=== PATIENT | male | born 1965 | race Two or more races ===

== ENCOUNTER 2020-04-06 19:04 | Emergency (ER) | payer MEDICAID ==
[~2020-04-06] VITALS: Ht 177.8 cm; Wt 70.0 kg
[2020-04-06 19:07] VITALS: BP 128/76
[2020-04-06 21:14] LABS: BASOPHILS % 0.5 % (0.0-2.0); EOSINOPHILS % 0.3 % (0.0-5.0); HEMATOCRIT. 41.8 % (42.0-52.0); HEMOGLOBIN. 14.1 g/dL (14.0-18.0); LYMPHOCYTES % 46.4 % (20.0-50.0); MEAN CORPUSCULAR HEMOGLOBIN 32.9 pg (28.0-32.0); MEAN CORPUSCULAR VOLUME 97.5 fL (80.0-94.0); MEAN PLATELET VOLUME 8.1 fl (7.4-10.4); MONOCYTES % 7.2 % (2.0-8.0); NEUTROPHILS % 45.6 % (40.0-76.0); PLATELET 110 x1000/uL (130-400); RED BLOOD CELL COUNT 4.29 mill/uL (4.7-6.1); RED CELL DISTRIBUTION WIDTH 16.3 % (11.6-14.6)
[2020-04-06 21:17] LABS: CHLORIDE 111 mEq/L (98-107)
== END 2020-04-06 21:38 | disposition home or self-care (01) ==
LOC: ER 19:04
DX: M25.812 Other specified joint disorders, left shoulder (principal); I10 Essential (primary) hypertension
CPT/HCPCS: 36415; 71045; 80048; 85025; 99284

== ENCOUNTER 2021-07-09 03:17 | Inpatient (IN) | payer MEDICAID ==
[~2021-07-09] VITALS: Ht 165.1 cm; Wt 85.3 kg
[2021-07-09 04:55] LABS: BASOPHILS % 0.9 % (0.0-2.0); EOSINOPHILS % 0.6 % (0.0-5.0); HEMATOCRIT. 36.6 % (42.0-52.0); LYMPHOCYTES % 29.7 % (20.0-50.0); MEAN CORPUSCULAR HEMOGLOBIN 32.1 pg (28.0-32.0); MEAN CORPUSCULAR VOLUME 98.1 fL (80.0-94.0); MEAN PLATELET VOLUME 9.2 fl (7.4-10.4); MONOCYTES % 12.3 % (2.0-8.0); NEUTROPHILS % 56.5 % (40.0-76.0); PLATELET 76 x1000/uL (130-400); RED BLOOD CELL COUNT 3.73 mill/uL (4.7-6.1); RED CELL DISTRIBUTION WIDTH 16.8 % (11.6-14.6)
[2021-07-09 05:07] LABS: CHLORIDE 103 mEq/L (98-107)
[2021-07-09] MEDS ORDERED: IOHEXOL-350 100 ML BOTTLE ONE (07:08)
[2021-07-09] MEDS ORDERED: POTASSIUM CHLORIDE 20MEQ TABLET SR PO NR (12:45)
[2021-07-09] MEDS ORDERED: CLONIDINE 0.1MG TABLET PO PRN (13:00)
[2021-07-09] MEDS ORDERED: LORAZEPAM 0.5MG TABLET PO PRN (13:00)
[2021-07-09] MEDS ORDERED: IPRATROPIUM/ALBUTEROL 0.5-3(2.5)MG/3ML NEB HHN PRN (13:00)
[2021-07-09] MEDS ORDERED: DOCUSATE SODIUM 100MG CAPSULE PO PRN (13:00)
[2021-07-09] MEDS ORDERED: ACETAMINOPHEN 325MG TABLET PO PRN (13:00)
[2021-07-09] MEDS ORDERED: NALOXONE HCL 0.4MG/ML VIAL IV PRN (13:15)
[2021-07-09 13:33] LABS: INR 1.2
[2021-07-09] MEDS: HYDROCODONE/ACETAMINOPHEN 5/325MG TABLET PO PRN ×2 (13:33→22:28)
[2021-07-09] MEDS: ONDANSETRON HCL 4MG/2ML INJ IV PRN (13:34)
[2021-07-09] MEDS: FUROSEMIDE 40MG/4ML VIAL IVP SCH ×2 (13:35→17:54)
[2021-07-09 14:25] LABS: FERRITIN 56 ng/mL (22-322)
[2021-07-09 14:37] LABS: HEPATITIS B SURFACE ANTIGEN NEGATIVE
[2021-07-09] MEDS: BENZONATATE 100MG CAPSULE PO PRN (14:59)
[2021-07-09] MEDS: LISINOPRIL 5MG TABLET PO SCH (14:59)
[2021-07-09] MEDS: DIGOXIN 125MCG TABLET PO SCH (15:00)
[2021-07-09 17:00] VITALS: BP 111/84
[2021-07-09] MEDS ORDERED: ASPI-1497 PO (17:40)
[2021-07-09] MEDS ORDERED: DIGO125T80 PO (17:40)
[2021-07-09] MEDS ORDERED: LISI-186 PO (17:40)
[2021-07-09] MEDS ORDERED: FOLI-43 PO (17:40)
[2021-07-09] MEDS ORDERED: POTA20TA82 PO (17:40)
[2021-07-09] MEDS ORDERED: CARV6.2548 PO (17:40)
[2021-07-09] MEDS ORDERED: ATOR40TA70 PO (17:40)
[2021-07-09] MEDS ORDERED: FURO40TA5 PO (17:40)
[2021-07-09 17:45] LABS: *AMPHETAMINES SCREEN URINE PRESUMTIVE POSITIVE (NEGATIVE)
[2021-07-09 17:46] LABS: *BARBITURATES SCREEN URINE NEGATIVE (NEGATIVE); *BENZODIAZEPINES SCREEN URINE NEGATIVE (NEGATIVE); *COCAINE SCREEN URINE NEGATIVE (NEGATIVE); CANNABINOID URINE SCREEN NEGATIVE (NEGATIVE); METHADONE URINE SCREEN NEGATIVE (NEGATIVE); OPIATES URINE SCREEN PRESUMTIVE POSITIVE (NEGATIVE); PHENCYCLIDINE URINE SCREEN NEGATIVE (NEGATIVE)
[2021-07-09 20:00] VITALS: BP 124/92
[2021-07-09] MEDS: CARVEDILOL 6.25 MG TABLET PO SCH (21:09)
[2021-07-10] VITALS: BP 126/91
[2021-07-10 04:00] VITALS: BP 114/87
[2021-07-10] MEDS: ONDANSETRON HCL 4MG/2ML INJ IV PRN ×2 (04:40→15:29)
[2021-07-10] MEDS: FUROSEMIDE 40MG/4ML VIAL IVP SCH ×2 (06:32→16:26)
[2021-07-10 07:54] LABS: CHLORIDE 99 mEq/L (98-107)
[2021-07-10 08:00] VITALS: BP 125/94
[2021-07-10 08:08] LABS: BASOPHILS % 0.7 % (0.0-2.0); EOSINOPHILS % 0.5 % (0.0-5.0); HEMATOCRIT. 36.8 % (42.0-52.0); LYMPHOCYTES % 19.9 % (20.0-50.0); MEAN CORPUSCULAR HEMOGLOBIN 32.1 pg (28.0-32.0); MEAN CORPUSCULAR VOLUME 97.9 fL (80.0-94.0); MEAN PLATELET VOLUME 9.1 fl (7.4-10.4); MONOCYTES % 13.5 % (2.0-8.0); NEUTROPHILS % 65.4 % (40.0-76.0); PLATELET 56 x1000/uL (130-400); RED BLOOD CELL COUNT 3.76 mill/uL (4.7-6.1); RED CELL DISTRIBUTION WIDTH 16.5 % (11.6-14.6)
[2021-07-10] MEDS ORDERED: MAGNESIUM 2 G PREMIX 50 ML IV NR ×2 (10:00→17:30)
[2021-07-10] MEDS: POTASSIUM CHLORIDE 20MEQ TABLET SR PO SCH (10:04)
[2021-07-10] MEDS: CARVEDILOL 6.25 MG TABLET PO SCH (10:04)
[2021-07-10] MEDS: ASPIRIN 81MG TABLET PO SCH (10:04)
[2021-07-10] MEDS: LISINOPRIL 5MG TABLET PO SCH (10:05)
[2021-07-10 12:00] VITALS: BP 113/76
[2021-07-10 16:00] VITALS: BP 119/84
[2021-07-10] MEDS: DIGOXIN 125MCG TABLET PO SCH (17:47)
[2021-07-10 20:00] VITALS: BP 131/80
[2021-07-10] MEDS ORDERED: CARVEDILOL 12.5MG TABLET PO SCH (21:00)
[2021-07-11] VITALS: BP 99/65
[2021-07-11 04:00] VITALS: BP 118/74
[2021-07-11] MEDS: FUROSEMIDE 40MG/4ML VIAL IVP SCH ×2 (06:24→19:39)
[2021-07-11 07:20] LABS: BASOPHILS % 0.6 % (0.0-2.0); EOSINOPHILS % 1.2 % (0.0-5.0); HEMATOCRIT. 37.4 % (42.0-52.0); HEMOGLOBIN. 12.4 g/dL (14.0-18.0); LYMPHOCYTES % 30.5 % (20.0-50.0); MEAN CORPUSCULAR HEMOGLOBIN 32.6 pg (28.0-32.0); MEAN CORPUSCULAR VOLUME 97.8 fL (80.0-94.0); MEAN PLATELET VOLUME 10.6 fl (7.4-10.4); MONOCYTES % 12.1 % (2.0-8.0); NEUTROPHILS % 55.6 % (40.0-76.0); PLATELET 70 x1000/uL (130-400); RED BLOOD CELL COUNT 3.82 mill/uL (4.7-6.1); RED CELL DISTRIBUTION WIDTH 16.2 % (11.6-14.6)
[2021-07-11 07:22] LABS: CHLORIDE 98 mEq/L (98-107)
[2021-07-11] MEDS: LISINOPRIL 5MG TABLET PO SCH (08:40)
[2021-07-11] MEDS: ASPIRIN 81MG TABLET PO SCH (08:40)
[2021-07-11] MEDS: POTASSIUM CHLORIDE 20MEQ TABLET SR PO SCH ×2 (08:40→10:39)
[2021-07-11] MEDS: BENZONATATE 100MG CAPSULE PO PRN (17:58)
[2021-07-11] MEDS: SPIRONOLACTONE 25MG TABLET PO SCH (17:59)
[2021-07-11] MEDS: DIGOXIN 125MCG TABLET PO SCH (17:59)
[2021-07-12] MEDS: FUROSEMIDE 40MG/4ML VIAL IVP SCH ×2 (06:53→16:55)
[2021-07-12 07:30] LABS: BASOPHILS % 0.5 % (0.0-2.0); EOSINOPHILS % 0.7 % (0.0-5.0); HEMATOCRIT. 38.7 % (42.0-52.0); HEMOGLOBIN. 12.7 g/dL (14.0-18.0); MEAN CORPUSCULAR HEMOGLOBIN 32.4 pg (28.0-32.0); MEAN CORPUSCULAR VOLUME 98.6 fL (80.0-94.0); MEAN PLATELET VOLUME 9.8 fl (7.4-10.4); MONOCYTES % 11.5 % (2.0-8.0); NEUTROPHILS % 62.3 % (40.0-76.0); PLATELET 83 x1000/uL (130-400); RED BLOOD CELL COUNT 3.92 mill/uL (4.7-6.1); RED CELL DISTRIBUTION WIDTH 16.2 % (11.6-14.6)
[2021-07-12 08:00] VITALS: BP 113/75
[2021-07-12 08:17] LABS: CHLORIDE 98 mEq/L (98-107)
[2021-07-12] MEDS: LISINOPRIL 5MG TABLET PO SCH (08:36)
[2021-07-12] MEDS: SPIRONOLACTONE 25MG TABLET PO SCH (08:36)
[2021-07-12] MEDS: POTASSIUM CHLORIDE 20MEQ TABLET SR PO SCH (08:36)
[2021-07-12] MEDS ORDERED: MAGNESIUM 1 G PREMIX 100 ML IV SCH (10:00)
[2021-07-12 12:00] VITALS: BP 97/68
[2021-07-12] MEDS ORDERED: *PATIENT'S OWN MEDICATION STORAGE XX SCH (12:00)
[2021-07-12 16:00] VITALS: BP 114/85
[2021-07-12] MEDS: BENZONATATE 100MG CAPSULE PO PRN (16:55)
[2021-07-12] MEDS: HYDROCODONE/ACETAMINOPHEN 5/325MG TABLET PO PRN (16:55)
[2021-07-12] MEDS: DIGOXIN 125MCG TABLET PO SCH (17:04)
[2021-07-12 20:00] VITALS: BP 108/72
[2021-07-13] VITALS: BP 125/73
[2021-07-13 04:00] VITALS: BP 107/76
[2021-07-13] MEDS: FUROSEMIDE 40MG/4ML VIAL IVP SCH ×2 (06:51→18:13)
[2021-07-13 07:31] LABS: CHLORIDE 98 mEq/L (98-107)
[2021-07-13 07:45] LABS: BASOPHILS % 0.2 % (0.0-2.0); EOSINOPHILS % 0.2 % (0.0-5.0); HEMOGLOBIN. 12.2 g/dL (14.0-18.0); LYMPHOCYTES % 9.7 % (20.0-50.0); MEAN CORPUSCULAR HEMOGLOBIN 32.5 pg (28.0-32.0); MEAN CORPUSCULAR VOLUME 98.8 fL (80.0-94.0); MEAN PLATELET VOLUME 9.2 fl (7.4-10.4); MONOCYTES % 8.4 % (2.0-8.0); NEUTROPHILS % 81.5 % (40.0-76.0); PLATELET 83 x1000/uL (130-400); RED BLOOD CELL COUNT 3.74 mill/uL (4.7-6.1); RED CELL DISTRIBUTION WIDTH 16.5 % (11.6-14.6)
[2021-07-13 08:00] VITALS: BP 101/69
[2021-07-13] MEDS: LISINOPRIL 5MG TABLET PO SCH (09:00)
[2021-07-13] MEDS: POTASSIUM CHLORIDE 20MEQ TABLET SR PO SCH (09:45)
[2021-07-13] MEDS: SPIRONOLACTONE 25MG TABLET PO SCH (09:45)
[2021-07-13] MEDS ORDERED: MAGNESIUM 1 G PREMIX 100 ML IV SCH (11:00)
[2021-07-13 12:00] VITALS: BP 113/76
[2021-07-13] MEDS: BENZONATATE 100MG CAPSULE PO PRN (12:49)
[2021-07-13] MEDS: ACETAMINOPHEN 325MG TABLET PO PRN ×2 (12:50→21:11)
[2021-07-13] MEDS ORDERED: METOLAZONE 2.5MG TABLET PO NR (15:30)
[2021-07-13 16:00] VITALS: BP 121/80
[2021-07-13] MEDS: DIGOXIN 125MCG TABLET PO SCH (17:16)
[2021-07-13 20:00] VITALS: BP 116/77
[2021-07-14] VITALS (7 sets, daily range): BP systolic 114–156; BP diastolic 63–100
[2021-07-14] MEDS: HYDROCODONE/ACETAMINOPHEN 5/325MG TABLET PO PRN (05:17)
[2021-07-14] MEDS: FUROSEMIDE 40MG/4ML VIAL IVP SCH ×2 (05:18→17:16)
[2021-07-14 07:52] LABS: BASOPHILS % 0.4 % (0.0-2.0); EOSINOPHILS % 0.1 % (0.0-5.0); HEMATOCRIT. 41.9 % (42.0-52.0); HEMOGLOBIN. 14.1 g/dL (14.0-18.0); LYMPHOCYTES % 7.2 % (20.0-50.0); MEAN CORPUSCULAR HEMOGLOBIN 32.7 pg (28.0-32.0); MEAN CORPUSCULAR VOLUME 97.5 fL (80.0-94.0); MEAN PLATELET VOLUME 8.4 fl (7.4-10.4); MONOCYTES % 10.8 % (2.0-8.0); NEUTROPHILS % 81.5 % (40.0-76.0); PLATELET 109 x1000/uL (130-400); RED BLOOD CELL COUNT 4.29 mill/uL (4.7-6.1); RED CELL DISTRIBUTION WIDTH 16.5 % (11.6-14.6)
[2021-07-14 07:53] LABS: CHLORIDE 90 mEq/L (98-107)
[2021-07-14] MEDS: ACETAMINOPHEN 325MG TABLET PO PRN ×2 (08:09→19:31)
[2021-07-14] MEDS: LISINOPRIL 5MG TABLET PO SCH (08:09)
[2021-07-14] MEDS: POTASSIUM CHLORIDE 20MEQ TABLET SR PO SCH (08:09)
[2021-07-14] MEDS: SPIRONOLACTONE 25MG TABLET PO SCH (08:09)
[2021-07-14] MEDS ORDERED: POTASSIUM CHLORIDE 20MEQ TABLET SR PO ONE (12:00)
[2021-07-14] MEDS ORDERED: POTASSIUM CHLORIDE 20MEQ TABLET SR PO NR (13:00)
[2021-07-14] MEDS ORDERED: MAGNESIUM 2 G PREMIX 50 ML IV NR (14:00)
[2021-07-14] MEDS ORDERED: SPIR25TA PO (15:59)
[2021-07-14] MEDS ORDERED: GUAI600T44 MT (15:59)
[2021-07-14] MEDS ORDERED: BENZ-16 MT (15:59)
[2021-07-14] MEDS ORDERED: FURO40TA5 MT (15:59)
[2021-07-14] MEDS ORDERED: CARV3.1242 MT (15:59)
[2021-07-14] MEDS: ONDANSETRON HCL 4MG/2ML INJ IV PRN (17:02)
[2021-07-14] MEDS: DIGOXIN 125MCG TABLET PO SCH (18:02)
[2021-07-14] MEDS: GUAIFENESIN 600MG ER TABLET PO SCH (20:19)
[2021-07-15] VITALS: BP 142/90
[2021-07-15 04:00] VITALS: BP 144/89
[2021-07-15] MEDS: FUROSEMIDE 40MG/4ML VIAL IVP SCH (05:43)
[2021-07-15] MEDS: ACETAMINOPHEN 325MG TABLET PO PRN (05:44)
[2021-07-15 08:17] VITALS: BP 107/76
[2021-07-15] MEDS: GUAIFENESIN 600MG ER TABLET PO SCH (08:44)
[2021-07-15] MEDS: POTASSIUM CHLORIDE 20MEQ TABLET SR PO SCH (08:45)
[2021-07-15] MEDS: LISINOPRIL 5MG TABLET PO SCH (08:45)
[2021-07-15] MEDS: SPIRONOLACTONE 25MG TABLET PO SCH (08:45)
[2021-07-15 10:59] VITALS: BP 107/76
== END 2021-07-15 13:00 | disposition home or self-care (01) | DRG 194 ==
LOC: ER 03:25 → 7EST 05:58 → ENRESERV 15:29
PROVIDERS: ADMIT Internal Medicine; ATTEND Internal Medicine
DX: I11.0 Hypertensive heart disease with heart failure (principal); E43 Unspecified severe protein-calorie malnutrition; D69.6 Thrombocytopenia, unspecified; I27.21 Secondary pulmonary arterial hypertension; E88.09 Other disorders of plasma-protein metabolism, not elsewhere classified; R16.0 Hepatomegaly, not elsewhere classified; I42.9 Cardiomyopathy, unspecified; K74.60 Unspecified cirrhosis of liver; D53.9 Nutritional anemia, unspecified; E78.5 Hyperlipidemia, unspecified; I50.813 Acute on chronic right heart failure; E87.6 Hypokalemia; F10.10 Alcohol abuse, uncomplicated; F15.10 Other stimulant abuse, uncomplicated; I34.0 Nonrheumatic mitral (valve) insufficiency; Y90.9 Presence of alcohol in blood, level not specified; I50.23 Acute on chronic systolic (congestive) heart failure; R05.9 Cough, unspecified; Z20.822 Contact with and (suspected) exposure to COVID-19; E83.42 Hypomagnesemia; Z82.49 Family history of ischemic heart disease and other diseases of the circulatory system; Z79.82 Long term (current) use of aspirin; Z79.899 Other long term (current) drug therapy; R79.89 Other specified abnormal findings of blood chemistry; R18.8 Other ascites; Z68.31 Body mass index [BMI] 31.0-31.9, adult
CPT/HCPCS: 36415; 71045; 71275; 76700; 80048; 80053; 80061; 80305; 82728; 83036; 83615; 83735; 83880; 84484; 85025; 85379; 85651; 86705; 86709; 86803; 87340; 87426; 87804; 93005; 93306; 99291; J1940; J2405; J3475; J7040; Q9967